=== PATIENT | female | born 1985 | race Caucasian/White ===

== ENCOUNTER 2017-05-23 20:55 | Inpatient (IN) | payer OTHER ==
[~2017-05-23] VITALS: Ht 167.6 cm; Wt 152.0 kg
[2017-05-23 20:57] VITALS: O2SAT 100
[2017-05-23] MEDS ORDERED: ceFAZolin 2 GM PREMIX 50 ML ONE (21:04)
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
[2017-05-23] MEDS ORDERED: IOHEXOL 350 MG/ML 10 ML VIAL (for RAD DIAG) IV ONE (21:21)
[2017-05-23 21:23] LABS: AUTOMATED NEUTROPHIL # 8.9 TH/MM3 (1.8-7.7); BASOPHIL # 0.1 TH/MM3 (0-0.2); BASOPHIL % 0.4 % (0.0-2.0); EOSINOPHIL # 0.1 TH/MM3 (0-0.4); EOSINOPHIL % 0.8 % (0.0-4.0); HEMATOCRIT 39.2 % (35.0-46.0); I-STAT POTASSIUM 3.3 MMOL/L (3.5-4.9); I-STAT SODIUM 140 MMOL/L (138-146); LYMPH % 40.7 % (9.0-44.0); LYMPHOCYTE # 6.7 TH/MM3 (1.0-4.8); MEAN CORPUSCULAR HEMOGLOBIN 30.5 PG (27.0-34.0); MEAN CORPUSCULAR HGB CONC 34.6 % (32.0-36.0); MONO % 3.7 % (0.0-8.0); NEUT % 54.4 % (16.0-70.0); PLATELET COUNT 377 TH/MM3 (150-450); RED BLOOD COUNT 4.45 MIL/MM3 (4.00-5.30); WHITE BLOOD COUNT 16.4 TH/MM3 (4.0-11.0)
[2017-05-23 21:28] LABS: HEMO FLAGS AUTO DIFF
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
[2017-05-23 21:34] LABS: APTT (PATIENT) 23.5 SEC (24.3-30.1); INTERNATIONAL NORMALIZED RATIO 0.9 RATIO; PROTHROMBIN TIME - PATIENT 10.1 SEC (9.8-11.6)
[2017-05-23] MEDS ORDERED: LIDOCAINE HCL 1% PF 30 ML VIAL ONE (21:34)
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
[2017-05-23 21:43] LABS: BETA HCG QUANT LESS THAN 1 MIU/ML (0-5)
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
[2017-05-23 21:59] LABS: BANDS 1 % (0-6); EOSINOPHILS 2 % (0-4); METAMYELOCYTES 1 % (0-1); NEUTROPHIL # MANUAL DIFF 8.7 TH/MM3 (1.8-7.7); POLYS (SEG NEUTROPHILS) 51 % (16-70); WBC DIFF SAMPLE 100
[2017-05-23 22:00] VITALS: BP 113/70; PULSE 94; RESP 18; TEMP 99; O2SAT 98
[2017-05-23 22:01] LABS: PLATELET ESTIMATE SMEAR NORMAL (NORMAL); PLATELET MORPHOLOGY CLUMPED (NORMAL); SCAN/DIFF FINAL DIFF MANUAL
[2017-05-23] MEDS ORDERED: ACETAMINOPHEN 325 MG TAB PO PRN (22:15)
[2017-05-23] MEDS ORDERED: CHLORHEXIDINE GLUCONATE 2 % 1 PACK (2 CLOTHS) TOP PRN (22:15)
[2017-05-23] MEDS ORDERED: IBUPROFEN 800 MG TAB PO SCH (22:15)
[2017-05-23] MEDS ORDERED: ONDANSETRON HCL 4 MG/2 ML VIAL IV PRN (22:15)
[2017-05-23] MEDS ORDERED: MISCELLANEOUS NURSING INFORMATION XX SCH (22:15)
[2017-05-23] MEDS ORDERED: HYDROmorphone HCL PF 1 MG/ML VIAL IVP PRN (22:15)
--- NOTE | 2017-05-23 22:20 | RADRPT ---
EXAM DATE/TIME: 05/23/2017 22:11 [facility] COMPARISON: CHEST SINGLE AP, May 23, 2017, 20:50. INDICATIONS : Evaluate for pneumothorax post chest tube placement MEDICAL HISTORY : None. SURGICAL HISTORY : None. ENCOUNTER: Initial ACUITY: 1 day PAIN SCORE: Non-responsive. LOCATION: chest FINDINGS: A single AP portable semierect view the chest was obtained and demonstrates interval placement of a s mall bore right-sided chest tube projected over the mid lung. No pneumothorax is visualized. There is a small amount of subcutaneous emphysema again noted over the right lateral chest wall. The heart si ze is within normal limits. There is no definite mediastinal shift. There is mild hazy opacity in the right lung compared to the left. Study is Midinspiratory. The bony thorax appears intact. The patien t's head is flexed obscuring portions of the right lung apex. CONCLUSION: 1. Interval placement of small bore right-sided chest tube with no visualized pneumothorax. 2. Hazy opacity in the right lung. Elroy Rosales MD on May 23, 2017 at 22:18 Board Certified Radiologist. This report was verified electronically.
[2017-05-23] MEDS: PANTOPRAZOLE SODIUM 40 MG VIAL IVP SCH (22:51)
[2017-05-23] MEDS: ENOXAPARIN SODIUM 30 MG/0.3 ML SYRINGE SQ SCH (22:51)
[2017-05-23] MEDS: LACTATED RINGER'S 1000 ML INJ 1,000 ML IV SCH (22:51)
[2017-05-23] MEDS: DIAZEPAM 2 MG TAB PO SCH (22:52)
[2017-05-24] VITALS (15 sets, daily range): BP systolic 108–133; BP diastolic 61–77; PULSE 58–95; RESP 20–26; TEMP 97.9–99.1; O2SAT 95–100
[2017-05-24] MEDS: CHLORHEXIDINE GLUCONATE 2 % 1 PACK (2 CLOTHS) TOP SCH (04:00)
[2017-05-24 04:40] LABS: AUTOMATED NEUTROPHIL # 12.4 TH/MM3 (1.8-7.7); BASOPHIL % 0.2 % (0.0-2.0); HEMATOCRIT 35.1 % (35.0-46.0); HEMO FLAGS DIFF FINAL; LYMPH % 5.5 % (9.0-44.0); LYMPHOCYTE # 0.8 TH/MM3 (1.0-4.8); MEAN CELL VOLUME 88.7 FL (80.0-100.0); MEAN CORPUSCULAR HEMOGLOBIN 29.9 PG (27.0-34.0); MEAN CORPUSCULAR HGB CONC 33.7 % (32.0-36.0); MONO % 5.4 % (0.0-8.0); NEUT % 88.9 % (16.0-70.0); PLATELET COUNT 226 TH/MM3 (150-450); RED BLOOD COUNT 3.96 MIL/MM3 (4.00-5.30); RED CELL DISTRIBUTION WIDTH 13.4 % (11.6-17.2); WHITE BLOOD COUNT 13.9 TH/MM3 (4.0-11.0)
[2017-05-24 05:05] LABS: BICARBONATE 24.3 MEQ/L (21.0-32.0); POTASSIUM 4.1 MEQ/L (3.5-5.1)
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
[2017-05-24] MEDS: IBUPROFEN 800 MG TAB PO SCH ×3 (07:28→22:21)
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
[2017-05-24] MEDS: RESP: ALBUTEROL 2.5 MG/IPRATROPIUM 0.5 MG NEB (SCH) NEB ×4 (08:07→20:07)
[2017-05-24] MEDS: LACTATED RINGER'S 1000 ML INJ 1,000 ML IV SCH (08:43)
[2017-05-24] MEDS: DOCUSATE SODIUM 100 MG CAP PO SCH ×2 (08:43→19:54)
[2017-05-24] MEDS: DIAZEPAM 2 MG TAB PO SCH ×3 (08:43→22:21)
[2017-05-24] MEDS: LIDOCAINE HCL 5% PATCH T-DERMAL SCH (08:44)
[2017-05-24] MEDS ORDERED: NALOXONE HCL 0.4 MG/ML AMP IV PRN (11:00)
[2017-05-24] MEDS: ENOXAPARIN SODIUM 30 MG/0.3 ML SYRINGE SQ SCH ×2 (11:00→22:21)
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
[2017-05-24] MEDS ORDERED: MAGNESIUM SULFATE INJ 2 GM in SODIUM CHLORIDE 0.9% INJ 96 ML IV PRN (12:30)
[2017-05-24] MEDS ORDERED: POTASSIUM CHLOR 40 MEQ PREMIX 100 ML IV PRN ×2 (12:30)
[2017-05-24] MEDS ORDERED: MAGNESIUM OXIDE 400 MG TAB PO PRN (12:30)
[2017-05-24] MEDS ORDERED: MAGNESIUM SULFATE INJ 4 GM in SODIUM CHLORIDE 0.9% INJ 92 ML IV PRN (12:30)
[2017-05-24] MEDS ORDERED: POTASSIUM CHLOR 20 MEQ PREMIX 100 ML IV PRN ×2 (12:30)
[2017-05-24] MEDS ORDERED: POTASSIUM CHLORIDE 25 MEQ EFFERVESCENT TAB PO PRN (12:30)
[2017-05-24] MEDS ORDERED: POTASSIUM PHOSPHATE MONOBASIC 500 MG TAB PO/TUBE PRN (12:30)
[2017-05-24] MEDS ORDERED: SODIUM PHOSPHATE INJ 30 MMOL in SODIUM CHLOR 0.9% 250 ML INJ 240 ML IV PRN (12:30)
[2017-05-24] MEDS ORDERED: POTASSIUM PHOSPHATE INJ 30 MMOL in SODIUM CHLOR 0.9% 250 ML INJ 250 ML IV PRN (12:30)
[2017-05-24] MEDS ORDERED: POTASSIUM PHOSPHATE MONOBASIC 500 MG TAB PO PRN (12:30)
[2017-05-24] MEDS: HYDROmorphone HCL PCA 6 MG/30 ML IV SCH (12:37)
[2017-05-24] MEDS: PCA - TOTAL MG DILAUDID DELIVERED PER SHIFT OTHER SCH ×2 (14:00→22:00)
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
[2017-05-24] MEDS: PANTOPRAZOLE SODIUM 40 MG VIAL IVP SCH (22:21)
[2017-05-25] VITALS (13 sets, daily range): BP systolic 103–142; BP diastolic 60–79; PULSE 64–97; RESP 15–26; TEMP 97–98.5; O2SAT 97–100
[2017-05-25] MEDS: HYDROmorphone HCL PCA 6 MG/30 ML IV SCH (01:12)
[2017-05-25] MEDS: CHLORHEXIDINE GLUCONATE 2 % 1 PACK (2 CLOTHS) TOP SCH (04:00)
[2017-05-25] MEDS: LACTATED RINGER'S 1000 ML INJ 1,000 ML IV SCH ×3 (05:00→19:41)
[2017-05-25] MEDS: IBUPROFEN 800 MG TAB PO SCH ×3 (05:10→21:30)
[2017-05-25] MEDS: PCA - TOTAL MG DILAUDID DELIVERED PER SHIFT OTHER SCH ×3 (06:00→22:00)
--- NOTE | 2017-05-25 06:21 | RADRPT ---
EXAM DATE/TIME: 05/25/2017 05:13 [facility] COMPARISON: CHEST SINGLE AP, May 24, 2017, 5:13. INDICATIONS : Short of breath. MEDICAL HISTORY : None. SURGICAL HISTORY : None. ENCOUNTER: Subsequent ACUITY: 2 days PAIN SCORE: Non-responsive. LOCATION: Bilateral chest FINDINGS: Small caliber right chest tube remains in place. No pneumothorax seen. Mild atelectasis seen at both lung bases. No perceptible effusion. Heart size stable, upper limits of normal. CONCLUSION: Decreasing airspace consolidation. Right chest tube remains in place. No perceptible pneumothorax. Darrel Gunn MD on May 25, 2017 at 6:19 Board Certified Radiologist. This report was verified electronically.
[2017-05-25 06:38] LABS: AUTOMATED NEUTROPHIL # 6.9 TH/MM3 (1.8-7.7); BASOPHIL % 0.4 % (0.0-2.0); EOSINOPHIL # 0.2 TH/MM3 (0-0.4); EOSINOPHIL % 1.6 % (0.0-4.0); HEMATOCRIT 37.8 % (35.0-46.0); HEMO FLAGS DIFF FINAL; LYMPH % 19.3 % (9.0-44.0); LYMPHOCYTE # 1.9 TH/MM3 (1.0-4.8); MEAN CORPUSCULAR HEMOGLOBIN 29.2 PG (27.0-34.0); MEAN CORPUSCULAR HGB CONC 32.4 % (32.0-36.0); MONO % 7.7 % (0.0-8.0); PLATELET COUNT 204 TH/MM3 (150-450); RED CELL DISTRIBUTION WIDTH 13.6 % (11.6-17.2); WHITE BLOOD COUNT 9.7 TH/MM3 (4.0-11.0)
[2017-05-25] MEDS: DIAZEPAM 2 MG TAB PO SCH ×3 (07:00→21:31)
[2017-05-25 07:06] LABS: ALKALINE PHOSPHATASE 71 U/L (45-117); TOTAL BILIRUBIN ADULT 0.5 MG/DL (0.2-1.0)
[2017-05-25] MEDS: DOCUSATE SODIUM 100 MG CAP PO SCH ×2 (07:25→19:41)
--- NOTE | 2017-05-25 07:49 | PD.ORT.PN ---
Subjective Subjective Remarks Complains of right shoulder pain and fracture. Chest tube in place due to right side pneumothorax Objective Vitals Vital Signs Date Time Temp Pulse Resp B/P Pulse Ox O2 Delivery O2 Flow Rate FiO2 05/25/17 06:00 76 05/25/17 04:00 71 05/25/17 04:00 97.4 71 16 118/60 97 05/25/17 02:00 74 05/25/17 01:12 15 05/25/17 00:00 70 05/25/17 00:00 97.9 70 15 115/60 98 05/24/17 23:21 15 05/24/17 22:00 79 05/24/17 22:00 15 05/24/17 20:05 95 Nasal Cannula 3.00 05/24/17 20:00 75 05/24/17 20:00 98.4 79 20 119/71 97 05/24/17 19:00 97 Nasal Cannula 3.00 05/24/17 18:00 75 05/24/17 16:00 98.8 90 20 123/73 99 05/24/17 16:00 90 05/24/17 14:00 83 05/24/17 14:00 20 05/24/17 13:07 19 05/24/17 12:37 20 05/24/17 12:00 95 05/24/17 12:00 98.0 95 20 118/67 96 05/24/17 10:00 92 05/24/17 08:10 99 4.00 05/24/17 08:00 58 05/24/17 08:00 97.9 78 20 133/77 100 I/O 05/24/17 05/24/17 05/24/17 05/25/17 05/25/17 05/25/17 07:00 15:00 23:00 07:00 15:00 23:00 Intake Total 622 ml 1496 ml 1287 ml 669 ml Output Total 625 ml 1200 ml 350 ml 300 ml Balance -3 ml 296 ml 937 ml 369 ml Intake Oral 800 ml 400 ml IV Total 622 ml 696 ml 887 ml 669 ml Output Urine Total 625 ml 1200 ml 350 ml 300 ml Chest Tube Drainage Total 0 ml 0 ml # Voids 1 # Bowel Movements 0 0 0 0 Result Diagram: 05/25/17 0605/24/17 0357 Imaging Last 72 hours Impressions Chest X-Ray 05/25/17 0600 Signed Impressions: Service Date/Time: Thursday, May 25, 2017 05:13 - CONCLUSION: Decreasing airspace consolidation. Right chest tube remains in place. No perceptible pneumothorax. Darrel Gunn MD Chest X-Ray 05/24/17 0000 Signed Impressions: Service Date/Time: Wednesday, May 24, 2017 05:13 - CONCLUSION: Persistent infiltrate right lung base. Chest tube overlies the right chest. Small right apical pneumothorax Raul Lemons MD Pelvis X-Ray 05/23/172056 Signed Impressions: Service Date/Time: Tuesday, May 23, 2017 20:50 - CONCLUSION: Negative trauma study. Elroy Rosales MD Head CT 05/23/172056 Signed Impressions: Service Date/Time: Tuesday, May 23, 2017 21:14 - CONCLUSION: 1. The study is degraded by motion and streak artifact. 2. No definite hemorrhage or mass effect identified. Elroy Rosales MD Chest X-Ray 05/23/172056 Signed Impressions: Service Date/Time: Tuesday, May 23, 2017 20:50 - CONCLUSION: 1. Subcutaneous emphysema and apparent right pneumothorax. 2. The heart appears mildly displaced to the left of midline which could indicate tension. Elroy Rosales MD Chest CT 05/23/172056 Signed Impressions: Service Date/Time: Tuesday, May 23, 2017 21:21 - CONCLUSION: 1. Moderate size right pneumothorax with mediastinal shift to the left consistent with tension pneumothorax. 2. Nondisplaced right rib fractures with subcutaneous edema 3. Small right effusion and mild right lung contusion. These findings were called to Dr. Perdomo in the emergency room at 2138 hrs. Elroy Rosales MD Cervical Spine CT 05/23/172056 Signed Impressions: Service Date/Time: Tuesday, May 23, 2017 21:14 - CONCLUSION: Negative trauma CT. Elroy Rosales MD Abdomen/Pelvis CT 05/23/172056 Signed Impressions: Service Date/Time: Tuesday, May 23, 2017 21:21 - CONCLUSION: 1. No definite visceral injury. There is mild motion and streak artifact. 2. Moderate size right basilar and lateral pneumothorax with mild small right effusion. 3. Several right lower lateral rib fractures. Elroy Rosales MD Humerus X-Ray 05/23/17 0000 Signed Impressions: Service Date/Time: Tuesday, May 23, 2017 20:50 - CONCLUSION: Transverse fracture through the midhumerus. Elroy Rosales MD Chest X-Ray 05/23/17 0000 Signed Impressions: Service Date/Time: Tuesday, May 23, 2017 22:11 - CONCLUSION: 1. Interval placement of small bore right-sided chest tube with no visualized pneumothorax. 2. Hazy opacity in the right lung. Elroy Rosales MD Last 72 hours Impressions Chest X-Ray 05/24/17 0000 Signed Impressions: Service Date/Time: Wednesday, May 24, 2017 05:13 - CONCLUSION: Persistent infiltrate right lung base. Chest tube overlies the right chest. Small right apical pneumothorax Raul Lemons MD Pelvis X-Ray 05/23/172056 Signed Impressions: Service Date/Time: Tuesday, May 23, 2017 20:50 - CONCLUSION: Negative trauma study. Elroy Rosales MD Head CT 05/23/172056 Signed Impressions: Service Date/Time: Tuesday, May 23, 2017 21:14 - CONCLUSION: 1. The study is degraded by motion and streak artifact. 2. No definite hemorrhage or mass effect identified. Elroy Rosales MD Chest X-Ray 05/23/172056 Signed Impressions: Service Date/Time: Tuesday, May 23, 2017 20:50 - CONCLUSION: 1. Subcutaneous emphysema and apparent right pneumothorax. 2. The heart appears mildly displaced to the left of midline which could indicate tension. Elroy Rosales MD Chest CT 05/23/172056 Signed Impressions: Service Date/Time: Tuesday, May 23, 2017 21:21 - CONCLUSION: 1. Moderate size right pneumothorax with mediastinal shift to the left consistent with tension pneumothorax. 2. Nondisplaced right rib fractures with subcutaneous edema 3. Small right effusion and mild right lung contusion. These findings were called to Dr. Perdomo in the emergency room at 2138 hrs. Elroy Rosales MD Cervical Spine CT 05/23/172056 Signed Impressions: Service Date/Time: Tuesday, May 23, 2017 21:14 - CONCLUSION: Negative trauma CT. Elroy Rosales MD Abdomen/Pelvis CT 05/23/172056 Signed Impressions: Service Date/Time: Tuesday, May 23, 2017 21:21 - CONCLUSION: 1. No definite visceral injury. There is mild motion and streak artifact. 2. Moderate size right basilar and lateral pneumothorax with mild small right effusion. 3. Several right lower lateral rib fractures. Elroy Rosales MD Humerus X-Ray 05/23/17 0000 Signed Impressions: Service Date/Time: Tuesday, May 23, 2017 20:50 - CONCLUSION: Transverse fracture through the midhumerus. Elroy Rosales MD Chest X-Ray 05/23/17 0000 Signed Impressions: Service Date/Time: Tuesday, May 23, 2017 22:11 - CONCLUSION: 1. Interval placement of small bore right-sided chest tube with no visualized pneumothorax. 2. Hazy opacity in the right lung. Elroy Rosales MD Last 24 hours Impressions Chest X-Ray 05/24/17 Signed Impressions: Service Date/Time: Wednesday, May 24, 2017 05:13 - CONCLUSION: Persistent infiltrate right lung base. Chest tube overlies the right chest. Small right apical pneumothorax Raul Lemons MD Pelvis X-Ray 05/23/172056 Signed Impressions: Service Date/Time: Tuesday, May 23, 2017 20:50 - CONCLUSION: Negative trauma study. Elroy Rosales MD Head CT 05/23/172056 Signed Impressions: Service Date/Time: Tuesday, May 23, 2017 21:14 - CONCLUSION: 1. The study is degraded by motion and streak artifact. 2. No definite hemorrhage or mass effect identified. Elroy Rosales MD Chest X-Ray 05/23/172056 Signed Impressions: Service Date/Time: Tuesday, May 23, 2017 20:50 - CONCLUSION: 1. Subcutaneous emphysema and apparent right pneumothorax. 2. The heart appears mildly displaced to the left of midline which could indicate tension. Elroy Rosales MD Chest CT 05/23/172056 Signed Impressions: Service Date/Time: Tuesday, May 23, 2017 21:21 - CONCLUSION: 1. Moderate size right pneumothorax with mediastinal shift to the left consistent with tension pneumothorax. 2. Nondisplaced right rib fractures with subcutaneous edema 3. Small right effusion and mild right lung contusion. These findings were called to Dr. Perdomo in the emergency room at 2138 hrs. Elroy Rosales MD Cervical Spine CT 05/23/172056 Signed Impressions: Service Date/Time: Tuesday, May 23, 2017 21:14 - CONCLUSION: Negative trauma CT. Elroy Rosales MD Abdomen/Pelvis CT 05/23/172056 Signed Impressions: Service Date/Time: Tuesday, May 23, 2017 21:21 - CONCLUSION: 1. No definite visceral injury. There is mild motion and streak artifact. 2. Moderate size right basilar and lateral pneumothorax with mild small right effusion. 3. Several right lower lateral rib fractures. Elroy Rosales MD Objective Remarks Right upper extremity: Full range of motion and neurovascularly intact Bilateral lower extremities: No pain with range of motion of hip knee or ankle. Distally intact sensation with good capillary refills strong dorsiflexion and plantar flexion of bilateral feet Left upper extremity: Coaptation splint in place. No pain at wrist or fingers. Intact sensation distally over the radial ulnar and median nerve distributions with good capillary refills. Assessment & Plan Assessment and Plan Left humeral shaft fracture Maintain splint Nonweightbearing left upper extremity nothing by mouth Plan for surgery today morning with Dr. Lugo for open reduction internal fixation of left humerus Sign consents Elroy Walker Jr. May 25, 2017 07:49
[2017-05-25 07:57] LABS: ALT (GPT) 269 U/L (10-53); ANION GAP 6 MEQ/L (5-15); AST (GOT) 150 U/L (15-37); BICARBONATE 24.7 MEQ/L (21.0-32.0); BLOOD UREA NITROGEN 8 MG/DL (7-18); CHLORIDE 106 MEQ/L (98-107); GLOMERULAR FILTRATION RATE 121 ML/MIN (>89); POTASSIUM 4.6 MEQ/L (3.5-5.1); SODIUM (NA) 137 MEQ/L (136-145)
[2017-05-25] MEDS: RESP: ALBUTEROL 2.5 MG/IPRATROPIUM 0.5 MG NEB (SCH) NEB ×4 (08:23→20:16)
[2017-05-25] MEDS: LIDOCAINE HCL 5% PATCH T-DERMAL SCH (09:00)
[2017-05-25] MEDS ORDERED: ACETAMINOPHEN 1000 MG/100 ML VIAL IV ONE (09:49)
[2017-05-25] MEDS ORDERED: DEXAMETHASONE SOD PHOS 4 MG/ML VIAL ONE (09:49)
[2017-05-25] MEDS ORDERED: FAMOTIDINE 20 MG/2 ML VIAL ONE (09:49)
[2017-05-25] MEDS ORDERED: ceFAZolin INJ 1,000 MG VIAL IV ONE (10:49)
[2017-05-25] MEDS ORDERED: VANCOMYCIN HCL 1000 MG VIAL OTHER ONE (10:51)
[2017-05-25] MEDS ORDERED: GENTAMICIN SULFATE 80 MG/2 ML VIAL IRRIGATION ONE (10:57)
[2017-05-25] MEDS: ENOXAPARIN SODIUM 30 MG/0.3 ML SYRINGE SQ SCH ×2 (11:00→21:30)
--- NOTE | 2017-05-25 11:54 | PD.OP ---
cc: Lazaro Chase MD Operative Report Date of Surgery: May 25, 2017 Preoperative Diagnosis: Displaced left humerus shaft fracture Postoperative Diagnosis: Procedure: Open reduction and fixation left humerus shaft fracture Surgeon: Lazaro Chase Bank Accountant(s): SELVIN Valle PA-C The surgical procedure was assisted by my physician assistant dean of students. My P.A. presence was necessary throughout this case for the manipulation and positioning of the surgical extremity. My P.A. was assisting me throughout the duration of this procedure. The skill set of a physician assistant dean of students was medically necessary to complete this procedure. During the surgical case the surgical services tech was working at the back table and the physician assistant dean of students was directly assisting me. Operation and Findings: Patient was seen and evaluated preoperatively. She was found to have a displaced left humerus shaft fracture. Treatment options were discussed regarding humerus fracture including surgical and nonsurgical treatments. After detailed discussion of risk and benefits of procedure patient wishes to proceed with surgery. Risks of surgery include bleeding, infection, nonunion, malunion, painful hardware, loss of motion of shoulder and elbow, weakness and numbness of arm, as well as medical competitions including blood clots stroke and . Patient was brought to operating room and placed on the OR table. GETA was administered by anesthesiologist. Operative arm and shoulder were prepped with alcohol followed by Hibiclens and draped usual sterile fashion. Timeout procedure was performed. IV antibiotics were given prior to incision. A standard anterior approach was utilized. Subcutaneous tissues was dissected with Bovie. Cephalic vein was identified and protected. Proximally the deltopectoral interval was opened. Distally the brachialis was split. The fracture was identified. There was an area of comminution. Soft tissue was removed from the fracture site. Fracture site was cleaned with curettes. At this point the fracture was reduced using fracture tenaculums. Multiplanar fluoroscopy confirmed excellent of fracture. A ITS 3.5 compression plate was contoured to fit the humerus. Plate was provisionally held the bone with K wires. 3.5 cortical screws were placed on each side of the fracture. The screws were placed to add compression to fracture. Multiple screws were placed in each side of the fracture. All screws were predrilled and premeasured for appropriate length. Final fluoroscopy revealed excellent alignment of fracture with well-placed hardware. Incision was thoroughly irrigated. Fascia was closed with #1 Vicryl, subcutaneous tissues closed with 3-0 Vicryl, and skin was closed with cristhian. Sterile dressings were applied. Needle and sponge counts were correct. Patient was placed into a sling, and then transferred to recovery room in stable condition Lazaro Chase MD May 25, 2017 11:54
[2017-05-25] MEDS ORDERED: NEOSTIGMINE 3 MG/3 ML SYR IV ONE (12:00)
[2017-05-25] MEDS ORDERED: MORPHINE SULFATE 4 MG/ML INJ IV PUSH PRN (12:00)
[2017-05-25] MEDS ORDERED: ONDANSETRON HCL 4 MG/2 ML VIAL IV PUSH ONE (12:00)
[2017-05-25] MEDS ORDERED: SODIUM CHLORIDE 0.9% FLUSH 5 ML FLUSH IVF PRN (12:00)
[2017-05-25] MEDS ORDERED: PROPOFOL 200 MG/20 ML AMP IV ONE (12:00)
[2017-05-25] MEDS ORDERED: fentaNYL CITRATE 250 MCG/5 ML AMP ONE (12:27)
[2017-05-25] MEDS ORDERED: CALCTAB19 PO (12:35)
[2017-05-25] MEDS ORDERED: ERGO1CAP30 PO (12:35)
[2017-05-25] MEDS ORDERED: HYDR-3583 PO (12:35)
[2017-05-25] MEDS ORDERED: *morphine SULFATE 8 MG/ML PERIprocedure ONLY ONE (12:36)
[2017-05-25] MEDS ORDERED: DO NOT ADM ANY ANTICOAGULANT DRUGS PRN (12:45)
[2017-05-25] MEDS: METHOCARBAMOL 500 MG TAB PO SCH ×2 (15:28→21:30)
--- NOTE | 2017-05-25 15:33 | RADRPT ---
EXAM DATE/TIME: 05/25/2017 11:37 [facility] COMPARISON: HUMERUS LEFT (1 VW), May 23, 2017, 20:50. INDICATIONS : ORIF left humerus. MEDICAL HISTORY : None. SURGICAL HISTORY : None. ENCOUNTER: Subsequent ACUITY: 3 days PAIN SCORE: Non-responsive. LOCATION: Left humerus. FINDINGS: Side plate and multiple screws traverse the humerus with excellent anatomical alignment of the fractu re fragments. CONCLUSION: Intact postsurgical changes for technique. Brittany Camejo MD on May 25, 2017 at 15:32 Board Certified Radiologist. This report was verified electronically.
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
[2017-05-25] MEDS: ceFAZolin 2 GM PREMIX 50 ML IV SCH (19:41)
[2017-05-25] MEDS: SODIUM CHLORIDE 0.9% FLUSH 5 ML FLUSH IVF SCH (21:00)
[2017-05-25] MEDS: PANTOPRAZOLE SODIUM 40 MG VIAL IVP SCH (21:30)
[2017-05-26] VITALS (7 sets, daily range): BP systolic 99–113; BP diastolic 55–63; PULSE 75–97; RESP 19–21; TEMP 96.4–97.1; O2SAT 96–100
[2017-05-26] MEDS: CHLORHEXIDINE GLUCONATE 2 % 1 PACK (2 CLOTHS) TOP SCH (00:13)
[2017-05-26] MEDS: MAGNESIUM HYDROXIDE SUSP 30 ML CUP PO PRN ×2 (00:32→13:55)
[2017-05-26] MEDS: ceFAZolin 2 GM PREMIX 50 ML IV SCH ×2 (03:42→13:44)
[2017-05-26] MEDS: HYDROmorphone HCL PCA 6 MG/30 ML IV SCH (04:14)
[2017-05-26] MEDS: PCA - TOTAL MG DILAUDID DELIVERED PER SHIFT OTHER SCH (06:00)
[2017-05-26] MEDS: IBUPROFEN 800 MG TAB PO SCH ×3 (06:04→22:06)
[2017-05-26] MEDS: METHOCARBAMOL 500 MG TAB PO SCH ×3 (06:04→22:07)
--- NOTE | 2017-05-26 06:49 | RADRPT ---
EXAM DATE/TIME: 05/26/2017 06:30 [facility] COMPARISON: CHEST SINGLE AP, May 25, 2017, 5:13. INDICATIONS : Right side pneumothorax follow-up. MEDICAL HISTORY : Pneumothorax. SURGICAL HISTORY : Left humerus repair. ENCOUNTER: Subsequent ACUITY: 3 days PAIN SCORE: 4/10 LOCATION: Bilateral chest FINDINGS: Right chest tube remains in place, loop projecting over the lateral right mid lung. A small apical pn eumothorax is present. There is mild atelectasis of both bases. No effusion seen. No left pneumothorax. Heart size stable, upper limits of normal. CONCLUSION: 1. Right chest tube unchanged. Very small apical pneumothorax. 2. Mild bibasilar atelectasis Darrel Gunn MD on May 26, 2017 at 6:46 Board Certified Radiologist. This report was verified electronically.
[2017-05-26] MEDS: DIAZEPAM 2 MG TAB PO SCH (08:24)
[2017-05-26 08:43] LABS: AUTOMATED NEUTROPHIL # 8.9 TH/MM3 (1.8-7.7); BASOPHIL % 0.2 % (0.0-2.0); EOSINOPHIL % 0.3 % (0.0-4.0); HEMO FLAGS DIFF FINAL; LYMPH % 11.7 % (9.0-44.0); LYMPHOCYTE # 1.3 TH/MM3 (1.0-4.8); MEAN CELL VOLUME 91.8 FL (80.0-100.0); MEAN CORPUSCULAR HEMOGLOBIN 31.4 PG (27.0-34.0); MEAN CORPUSCULAR HGB CONC 34.2 % (32.0-36.0); MONO % 8.1 % (0.0-8.0); NEUT % 79.7 % (16.0-70.0); PLATELET COUNT 204 TH/MM3 (150-450); RED BLOOD COUNT 3.38 MIL/MM3 (4.00-5.30); RED CELL DISTRIBUTION WIDTH 13.7 % (11.6-17.2); WHITE BLOOD COUNT 11.2 TH/MM3 (4.0-11.0)
[2017-05-26 08:55] LABS: ANION GAP 7 MEQ/L (5-15); AST (GOT) 87 U/L (15-37); BICARBONATE 26.6 MEQ/L (21.0-32.0); BLOOD UREA NITROGEN 8 MG/DL (7-18); CHLORIDE 103 MEQ/L (98-107); GLOMERULAR FILTRATION RATE 141 ML/MIN (>89); POTASSIUM 4.4 MEQ/L (3.5-5.1); SODIUM (NA) 137 MEQ/L (136-145)
[2017-05-26] MEDS: RESP: ALBUTEROL 2.5 MG/IPRATROPIUM 0.5 MG NEB (SCH) NEB ×2 (08:58→11:24)
[2017-05-26 08:59] LABS: ALKALINE PHOSPHATASE 65 U/L (45-117); ALT (GPT) 161 U/L (10-53); TOTAL BILIRUBIN ADULT 0.4 MG/DL (0.2-1.0)
--- NOTE | 2017-05-26 10:12 | PD.ORT.PN ---
Subjective Subjective Remarks Pain controlled. Chest tube in place due to right side pneumothorax Objective Vitals Vital Signs Date Time Temp Pulse Resp B/P Pulse Ox O2 Delivery O2 Flow Rate FiO2 05/26/17 09:01 99 Nasal Cannula 2.00 05/26/17 07:38 96.4 75 19 113/63 99 05/26/17 07:26 18 05/26/17 06:00 18 05/26/17 04:44 18 05/26/17 04:14 18 05/26/17 04:00 96.7 97 21 113/60 96 05/26/17 02:00 Nasal Cannula 3.00 05/25/17 23:10 97.0 72 19 103/61 100 05/25/17 22:00 15 05/25/17 22:00 78 05/25/17 20:19 99 Nasal Cannula 3.00 05/25/17 20:00 98.4 64 17 142/79 98 05/25/17 20:00 64 05/25/17 19:00 99 Nasal Cannula 3.00 05/25/17 18:00 80 05/25/17 16:00 98.5 97 26 112/66 99 05/25/17 16:00 93 05/25/17 14:00 85 05/25/17 12:45 89 12 141/76 96 Nasal Cannula 4 05/25/17 12:30 96 12 168/82 96 Nasal Cannula 4 05/25/17 12:22 99.6 101 23 161/84 94 Simple Mask 8 I/O 05/25/17 05/25/17 05/25/17 05/26/17 05/26/17 05/26/17 07:00 15:00 23:00 07:00 15:00 23:00 Intake Total 669 ml 1700 ml 1136 ml 938 ml Output Total 300 ml 750 ml 550 ml 0 ml Balance 369 ml 950 ml 586 ml 938 ml Intake Oral 400 ml 500 ml IV Total 669 ml 600 ml 736 ml 438 ml Other 1100 ml Output Urine Total 300 ml 600 ml 550 ml Chest Tube Drainage Total 0 ml 0 ml 0 ml Estimated Blood Loss 150 ml # Voids 1 4 # Bowel Movements 0 0 0 Result Diagram: 05/26/1746 05/26/17745 Imaging Last 72 hours Impressions Chest X-Ray 05/25/17 06 Signed Impressions: Service Date/Time: Thursday, May 25, 2017 05:13 - CONCLUSION: Decreasing airspace consolidation. Right chest tube remains in place. No perceptible pneumothorax. Darrel Gunn MD Chest X-Ray 05/24/17 0000 Signed Impressions: Service Date/Time: Wednesday, May 24, 2017 05:13 - CONCLUSION: Persistent infiltrate right lung base. Chest tube overlies the right chest. Small right apical pneumothorax Raul Lemons MD Pelvis X-Ray 05/23/172056 Signed Impressions: Service Date/Time: Tuesday, May 23, 2017 20:50 - CONCLUSION: Negative trauma study. Elroy Rosales MD Head CT 05/23/172056 Signed Impressions: Service Date/Time: Tuesday, May 23, 2017 21:14 - CONCLUSION: 1. The study is degraded by motion and streak artifact. 2. No definite hemorrhage or mass effect identified. Elroy Rosales MD Chest X-Ray 05/23/172056 Signed Impressions: Service Date/Time: Tuesday, May 23, 2017 20:50 - CONCLUSION: 1. Subcutaneous emphysema and apparent right pneumothorax. 2. The heart appears mildly displaced to the left of midline which could indicate tension. Elroy Rosales MD Chest CT 05/23/172056 Signed Impressions: Service Date/Time: Tuesday, May 23, 2017 21:21 - CONCLUSION: 1. Moderate size right pneumothorax with mediastinal shift to the left consistent with tension pneumothorax. 2. Nondisplaced right rib fractures with subcutaneous edema 3. Small right effusion and mild right lung contusion. These findings were called to Dr. Perdomo in the emergency room at 2138 hrs. Elroy Rosales MD Cervical Spine CT 05/23/172056 Signed Impressions: Service Date/Time: Tuesday, May 23, 2017 21:14 - CONCLUSION: Negative trauma CT. Elroy Rosales MD Abdomen/Pelvis CT 05/23/172056 Signed Impressions: Service Date/Time: Tuesday, May 23, 2017 21:21 - CONCLUSION: 1. No definite visceral injury. There is mild motion and streak artifact. 2. Moderate size right basilar and lateral pneumothorax with mild small right effusion. 3. Several right lower lateral rib fractures. Elroy Rosales MD Humerus X-Ray 7/9/17 0000 Signed Impressions: Service Date/Time: Tuesday, May 23, 2017 20:50 - CONCLUSION: Transverse fracture through the midhumerus. Elroy Rosales MD Chest X-Ray 05/23/17 0000 Signed Impressions: Service Date/Time: Tuesday, May 23, 2017 22:11 - CONCLUSION: 1. Interval placement of small bore right-sided chest tube with no visualized pneumothorax. 2. Hazy opacity in the right lung. Elroy Rosaels MD Last 72 hours Impressions Chest X-Ray 05/24/17 Signed Impressions: Service Date/Time: Wednesday, May 24, 2017 05:13 - CONCLUSION: Persistent infiltrate right lung base. Chest tube overlies the right chest. Small right apical pneumothorax Raul Lemons MD Pelvis X-Ray 05/23/172056 Signed Impressions: Service Date/Time: Tuesday, May 23, 2017 20:50 - CONCLUSION: Negative trauma study. Elroy Rosales MD Head CT 05/23/172056 Signed Impressions: Service Date/Time: Tuesday, May 23, 2017 21:14 - CONCLUSION: 1. The study is degraded by motion and streak artifact. 2. No definite hemorrhage or mass effect identified. Elroy Rosales MD Chest X-Ray 05/23/172056 Signed Impressions: Service Date/Time: Tuesday, May 23, 2017 20:50 - CONCLUSION: 1. Subcutaneous emphysema and apparent right pneumothorax. 2. The heart appears mildly displaced to the left of midline which could indicate tension. Elroy Rosales MD Chest CT 05/23/172056 Signed Impressions: Service Date/Time: Tuesday, May 23, 2017 21:21 - CONCLUSION: 1. Moderate size right pneumothorax with mediastinal shift to the left consistent with tension pneumothorax. 2. Nondisplaced right rib fractures with subcutaneous edema 3. Small right effusion and mild right lung contusion. These findings were called to Dr. Perdomo in the emergency room at 2138 hrs. Elroy Rosales MD Cervical Spine CT 05/23/172056 Signed Impressions: Service Date/Time: Tuesday, May 23, 2017 21:14 - CONCLUSION: Negative trauma CT. Elroy Rosales MD Abdomen/Pelvis CT 05/23/172056 Signed Impressions: Service Date/Time: Tuesday, May 23, 2017 21:21 - CONCLUSION: 1. No definite visceral injury. There is mild motion and streak artifact. 2. Moderate size right basilar and lateral pneumothorax with mild small right effusion. 3. Several right lower lateral rib fractures. Elroy Rosales MD Humerus X-Ray 05/23/17 0000 Signed Impressions: Service Date/Time: Tuesday, May 23, 2017 20:50 - CONCLUSION: Transverse fracture through the midhumerus. Elroy Rosales MD Chest X-Ray 05/23/17 Signed Impressions: Service Date/Time: Tuesday, May 23, 2017 22:11 - CONCLUSION: 1. Interval placement of small bore right-sided chest tube with no visualized pneumothorax. 2. Hazy opacity in the right lung. Elroy Rosales MD Last 24 hours Impressions Chest X-Ray 05/24/17 Signed Impressions: Service Date/Time: Wednesday, May 24, 2017 05:13 - CONCLUSION: Persistent infiltrate right lung base. Chest tube overlies the right chest. Small right apical pneumothorax Raul Lemons MD Pelvis X-Ray 05/23/172056 Signed Impressions: Service Date/Time: Tuesday, May 23, 2017 20:50 - CONCLUSION: Negative trauma study. Elroy Rosales MD Head CT 05/23/172056 Signed Impressions: Service Date/Time: Tuesday, May 23, 2017 21:14 - CONCLUSION: 1. The study is degraded by motion and streak artifact. 2. No definite hemorrhage or mass effect identified. Elroy Rosales MD Chest X-Ray 05/23/172056 Signed Impressions: Service Date/Time: Tuesday, May 23, 2017 20:50 - CONCLUSION: 1. Subcutaneous emphysema and apparent right pneumothorax. 2. The heart appears mildly displaced to the left of midline which could indicate tension. Elroy Rosales MD Chest CT 05/23/172056 Signed Impressions: Service Date/Time: Tuesday, May 23, 2017 21:21 - CONCLUSION: 1. Moderate size right pneumothorax with mediastinal shift to the left consistent with tension pneumothorax. 2. Nondisplaced right rib fractures with subcutaneous edema 3. Small right effusion and mild right lung contusion. These findings were called to Dr. Perdomo in the emergency room at 2138 hrs. Elroy Rosales MD Cervical Spine CT 05/23/172056 Signed Impressions: Service Date/Time: Tuesday, May 23, 2017 21:14 - CONCLUSION: Negative trauma CT. Elroy Rosales MD Abdomen/Pelvis CT 05/23/172056 Signed Impressions: Service Date/Time: Tuesday, May 23, 2017 21:21 - CONCLUSION: 1. No definite visceral injury. There is mild motion and streak artifact. 2. Moderate size right basilar and lateral pneumothorax with mild small right effusion. 3. Several right lower lateral rib fractures. Elroy Rosales MD Objective Remarks Right upper extremity: Full range of motion and neurovascularly intact Bilateral lower extremities: No pain with range of motion of hip knee or ankle. Distally intact sensation with good capillary refills strong dorsiflexion and plantar flexion of bilateral feet Left upper extremity: Clean dry dressings intact. Intact sensation distally with full extension and flexion of all fingers. Good capillary refills Assessment & Plan Assessment and Plan Left humeral shaft fracture ORIF POD 1 Nonweightbearing left upper extremity PT for passive and active assist range of motion of shoulder and elbow. Active range of motion of fingers Daily dressing changes beginning POD 2 Discharge planning Follow-up with Dr. Chase or [place] in 2 weeks Elroy Walker Jr. May 26, 2017 10:11
[2017-05-26] MEDS: LACTULOSE SYRUP 20 GM/30 ML CUP PO SCH (10:13)
[2017-05-26] MEDS: DOCUSATE SODIUM 100 MG CAP PO SCH ×2 (10:13→19:47)
[2017-05-26] MEDS: SODIUM CHLORIDE 0.9% FLUSH 10 ML FLUSH IV FLUSH PRN (10:13)
[2017-05-26] MEDS: LIDOCAINE HCL 5% PATCH T-DERMAL SCH (10:16)
[2017-05-26] MEDS: SODIUM CHLORIDE 0.9% FLUSH 5 ML FLUSH IVF SCH ×2 (10:16→19:47)
[2017-05-26] MEDS: ENOXAPARIN SODIUM 30 MG/0.3 ML SYRINGE SQ SCH ×2 (10:17→22:07)
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
[2017-05-26] MEDS: ACETAMINOPHEN/HYDROcodone 325 MG/10 MG TAB PO PRN ×3 (13:55→22:11)
[2017-05-26] MEDS: FAMOTIDINE 20 MG TAB PO SCH (19:47)
[2017-05-27] VITALS (7 sets, daily range): BP systolic 88–126; BP diastolic 50–65; PULSE 68–89; RESP 17–19; TEMP 95.8–96.4; O2SAT 97–100
[2017-05-27] MEDS: METHOCARBAMOL 500 MG TAB PO SCH (05:37)
[2017-05-27] MEDS: ACETAMINOPHEN/HYDROcodone 325 MG/10 MG TAB PO PRN ×4 (05:38→17:32)
[2017-05-27] MEDS: IBUPROFEN 800 MG TAB PO SCH ×3 (05:38→22:30)
--- NOTE | 2017-05-27 06:37 | HHI.FF ---
Face to Face Verification Diagnosis: (1) Closed left humeral fracture Nursing Dressing Changes: Daily dressing change, Xeroform, Coverderm/Primapore I have seen patient Camille Turcios on 05/27/17. My clinical findings support the need for the requested home health care services because: Ltd mobility - disease progression I certify that my clinical findings support that this patient is homebound because: Post-op weakness Grzegorz Sena May 27, 2017 06:37
--- NOTE | 2017-05-27 06:39 | PD.ORT.PN ---
Subjective Subjective Remarks POD 2 s/p ORIF left humeral shaft doing well. pain controlled. no complaints. Objective Vitals Vital Signs Date Time Temp Pulse Resp B/P Pulse Ox O2 Delivery O2 Flow Rate FiO2 05/27/17 00:00 96.0 73 18 107/57 98 05/26/17 22:22 Nasal Cannula 3.00 05/26/17 20:37 98 Nasal Cannula 2.00 05/26/17 20:00 96.8 75 19 103/59 100 05/26/17 15:38 97.1 76 19 99/55 99 05/26/17 12:00 96.6 96 19 105/58 100 05/26/17 10:16 Nasal Cannula 2.00 100 05/26/17 09:01 99 Nasal Cannula 2.00 05/26/17 07:38 96.4 75 19 113/63 99 05/26/17 07:26 18 I/O 05/26/17 05/26/17 05/26/17 05/27/17 05/27/17 05/27/17 07:00 15:00 23:00 07:00 15:00 23:00 Intake Total 938 ml 874 ml 780 ml Output Total 0 ml 0 ml 0 ml 0 ml Balance 938 ml 874 ml 780 ml 0 ml Intake Oral 500 ml 500 ml 780 ml IV Total 438 ml 374 ml Chest Tube Drainage Total 0 ml 0 ml 0 ml 0 ml # Voids 4 10 1 # Bowel Movements 0 0 0 Result Diagram: 05/26/17 0746 05/26/17 0746 Imaging Last 72 hours Impressions Chest X-Ray 05/25/17 0600 Signed Impressions: Service Date/Time: Thursday, May 25, 2017 05:13 - CONCLUSION: Decreasing airspace consolidation. Right chest tube remains in place. No perceptible pneumothorax. Darrel Gunn MD Chest X-Ray 05/24/17 0000 Signed Impressions: Service Date/Time: Wednesday, May 24, 2017 05:13 - CONCLUSION: Persistent infiltrate right lung base. Chest tube overlies the right chest. Small right apical pneumothorax Raul Lemons MD Pelvis X-Ray 05/23/172056 Signed Impressions: Service Date/Time: Tuesday, May 23, 2017 20:50 - CONCLUSION: Negative trauma study. Elroy Rosales MD Head CT 05/23/172056 Signed Impressions: Service Date/Time: Tuesday, May 23, 2017 21:14 - CONCLUSION: 1. The study is degraded by motion and streak artifact. 2. No definite hemorrhage or mass effect identified. Elroy Rosales MD Chest X-Ray 05/23/172056 Signed Impressions: Service Date/Time: Tuesday, May 23, 2017 20:50 - CONCLUSION: 1. Subcutaneous emphysema and apparent right pneumothorax. 2. The heart appears mildly displaced to the left of midline which could indicate tension. Elroy Rosales MD Chest CT 05/23/172056 Signed Impressions: Service Date/Time: Tuesday, May 23, 2017 21:21 - CONCLUSION: 1. Moderate size right pneumothorax with mediastinal shift to the left consistent with tension pneumothorax. 2. Nondisplaced right rib fractures with subcutaneous edema 3. Small right effusion and mild right lung contusion. These findings were called to Dr. Perdomo in the emergency room at 2138 hrs. Elroy Rosales MD Cervical Spine CT 05/23/172056 Signed Impressions: Service Date/Time: Tuesday, May 23, 2017 21:14 - CONCLUSION: Negative trauma CT. Elroy Rosales MD Abdomen/Pelvis CT 05/23/172056 Signed Impressions: Service Date/Time: Tuesday, May 23, 2017 21:21 - CONCLUSION: 1. No definite visceral injury. There is mild motion and streak artifact. 2. Moderate size right basilar and lateral pneumothorax with mild small right effusion. 3. Several right lower lateral rib fractures. Elroy Rosales MD Humerus X-Ray 05/23/17 0000 Signed Impressions: Service Date/Time: Tuesday, May 23, 2017 20:50 - CONCLUSION: Transverse fracture through the midhumerus. Elroy Rosales MD Chest X-Ray 05/23/17 0000 Signed Impressions: Service Date/Time: Tuesday, May 23, 2017 22:11 - CONCLUSION: 1. Interval placement of small bore right-sided chest tube with no visualized pneumothorax. 2. Hazy opacity in the right lung. Elroy Rosales MD Last 72 hours Impressions Chest X-Ray 05/24/17 0000 Signed Impressions: Service Date/Time: Wednesday, May 24, 2017 05:13 - CONCLUSION: Persistent infiltrate right lung base. Chest tube overlies the right chest. Small right apical pneumothorax Raul Lemons MD Pelvis X-Ray 05/23/172056 Signed Impressions: Service Date/Time: Tuesday, May 23, 2017 20:50 - CONCLUSION: Negative trauma study. Elroy Rosales MD Head CT 05/23/172056 Signed Impressions: Service Date/Time: Tuesday, May 23, 2017 21:14 - CONCLUSION: 1. The study is degraded by motion and streak artifact. 2. No definite hemorrhage or mass effect identified. Elroy Rosales MD Chest X-Ray 05/23/172056 Signed Impressions: Service Date/Time: Tuesday, May 23, 2017 20:50 - CONCLUSION: 1. Subcutaneous emphysema and apparent right pneumothorax. 2. The heart appears mildly displaced to the left of midline which could indicate tension. Elroy Rosales MD Chest CT 05/23/172056 Signed Impressions: Service Date/Time: Tuesday, May 23, 2017 21:21 - CONCLUSION: 1. Moderate size right pneumothorax with mediastinal shift to the left consistent with tension pneumothorax. 2. Nondisplaced right rib fractures with subcutaneous edema 3. Small right effusion and mild right lung contusion. These findings were called to Dr. Perdomo in the emergency room at 2138 hrs. Elroy Rosales MD Cervical Spine CT 05/23/172056 Signed Impressions: Service Date/Time: Tuesday, May 23, 2017 21:14 - CONCLUSION: Negative trauma CT. Elroy Rosales MD Abdomen/Pelvis CT 05/23/172056 Signed Impressions: Service Date/Time: Tuesday, May 23, 2017 21:21 - CONCLUSION: 1. No definite visceral injury. There is mild motion and streak artifact. 2. Moderate size right basilar and lateral pneumothorax with mild small right effusion. 3. Several right lower lateral rib fractures. Elroy Rosales MD Humerus X-Ray 05/23/17 0000 Signed Impressions: Service Date/Time: Tuesday, May 23, 2017 20:50 - CONCLUSION: Transverse fracture through the midhumerus. Elroy Rosales MD Chest X-Ray 05/23/17 0000 Signed Impressions: Service Date/Time: Tuesday, May 23, 2017 22:11 - CONCLUSION: 1. Interval placement of small bore right-sided chest tube with no visualized pneumothorax. 2. Hazy opacity in the right lung. Elroy Rosales MD Last 24 hours Impressions Chest X-Ray 05/24/17 0000 Signed Impressions: Service Date/Time: Wednesday, May 24, 2017 05:13 - CONCLUSION: Persistent infiltrate right lung base. Chest tube overlies the right chest. Small right apical pneumothorax Raul Lemons MD Pelvis X-Ray 05/23/172056 Signed Impressions: Service Date/Time: Tuesday, May 23, 2017 20:50 - CONCLUSION: Negative trauma study. Elroy Rosales MD Head CT 05/23/172056 Signed Impressions: Service Date/Time: Tuesday, May 23, 2017 21:14 - CONCLUSION: 1. The study is degraded by motion and streak artifact. 2. No definite hemorrhage or mass effect identified. Elroy Rosales MD Chest X-Ray 05/23/172056 Signed Impressions: Service Date/Time: Tuesday, May 23, 2017 20:50 - CONCLUSION: 1. Subcutaneous emphysema and apparent right pneumothorax. 2. The heart appears mildly displaced to the left of midline which could indicate tension. Elroy Rosales MD Chest CT 05/23/172056 Signed Impressions: Service Date/Time: Tuesday, May 23, 2017 21:21 - CONCLUSION: 1. Moderate size right pneumothorax with mediastinal shift to the left consistent with tension pneumothorax. 2. Nondisplaced right rib fractures with subcutaneous edema 3. Small right effusion and mild right lung contusion. These findings were called to Dr. Perdomo in the emergency room at 2138 hrs. Elroy Rosales MD Cervical Spine CT 05/23/172056 Signed Impressions: Service Date/Time: Tuesday, May 23, 2017 21:14 - CONCLUSION: Negative trauma CT. Elroy Rosales MD Abdomen/Pelvis CT 05/23/172056 Signed Impressions: Service Date/Time: Tuesday, May 23, 2017 21:21 - CONCLUSION: 1. No definite visceral injury. There is mild motion and streak artifact. 2. Moderate size right basilar and lateral pneumothorax with mild small right effusion. 3. Several right lower lateral rib fractures. Elroy Rosales MD Objective Remarks LUE: dressing clean and dry. intact. +sling. Full median/ulnar nerve sensation and good radial nerve function Assessment & Plan Assessment and Plan 1) Left humeral shaft fracture ORIF POD 2 Nonweightbearing left upper extremity PT for passive and active assist range of motion of shoulder and elbow. Active range of motion of fingers Daily dressing changes beginning POD 2 Discharge planning for home with [facility] Ortho cleared for discharge Follow-up with Dr. Chase or [place] in 2 weeks Grzegorz Sena May 27, 2017 06:39
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
[2017-05-27] MEDS: LIDOCAINE HCL 5% PATCH T-DERMAL SCH (07:54)
[2017-05-27] MEDS: LACTULOSE SYRUP 20 GM/30 ML CUP PO SCH (07:55)
[2017-05-27] MEDS: SODIUM CHLORIDE 0.9% FLUSH 5 ML FLUSH IVF SCH ×2 (07:55→21:00)
[2017-05-27] MEDS: DOCUSATE SODIUM 100 MG CAP PO SCH ×2 (07:55→21:00)
[2017-05-27] MEDS: RESP: ALBUTEROL 2.5 MG/IPRATROPIUM 0.5 MG NEB (SCH) NEB ×4 (08:20→19:04)
[2017-05-27] MEDS: ENOXAPARIN SODIUM 30 MG/0.3 ML SYRINGE SQ SCH ×2 (10:32→22:31)
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
[2017-05-27] MEDS ORDERED: METHOCARBAMOL 500 MG TAB PO PRN (13:30)
[2017-05-27] MEDS: FAMOTIDINE 20 MG TAB PO SCH (22:30)
--- NOTE | 2017-05-28 06:36 | PD.ORT.PN ---
Subjective Subjective Remarks POD 3 s/p ORIF left humeral shaft doing well. pain controlled. no complaints. out of bed. Objective Vitals Vital Signs Date Time Temp Pulse Resp B/P Pulse Ox O2 Delivery O2 Flow Rate FiO2 05/27/17 23:52 96.2 75 17 118/65 100 05/27/17 19:27 Nasal Cannula 2.00 05/27/17 19:00 96.0 89 17 110/59 98 05/27/17 15:52 96.4 88 19 95/51 100 05/27/17 15:33 97 Nasal Cannula 4.00 05/27/17 11:58 95.8 86 19 126/58 100 05/27/17 07:41 96.1 68 17 88/50 97 I/O 05/27/17 05/27/17 05/27/17 05/28/17 05/28/17 05/28/17 07:00 15:00 23:00 07:00 15:00 23:00 Intake Total 480 ml 720 ml 480 ml 240 ml Output Total 0 ml Balance 480 ml 720 ml 480 ml 240 ml Intake Oral 480 ml 720 ml 480 ml 240 ml Chest Tube Drainage Total 0 ml # Voids 1 1 3 3 # Bowel Movements 0 0 1 0 Result Diagram: 05/26/17 0746 05/26/17 0746 Imaging Last 72 hours Impressions Chest X-Ray 05/25/17 0600 Signed Impressions: Service Date/Time: Thursday, May 25, 2017 05:13 - CONCLUSION: Decreasing airspace consolidation. Right chest tube remains in place. No perceptible pneumothorax. Darrel Gunn MD Chest X-Ray 05/24/17 0000 Signed Impressions: Service Date/Time: Wednesday, May 24, 2017 05:13 - CONCLUSION: Persistent infiltrate right lung base. Chest tube overlies the right chest. Small right apical pneumothorax Raul Lemons MD Pelvis X-Ray 05/23/172056 Signed Impressions: Service Date/Time: Tuesday, May 23, 2017 20:50 - CONCLUSION: Negative trauma study. Elroy Rosales MD Head CT 05/23/172056 Signed Impressions: Service Date/Time: Tuesday, May 23, 2017 21:14 - CONCLUSION: 1. The study is degraded by motion and streak artifact. 2. No definite hemorrhage or mass effect identified. Elroy Rosales MD Chest X-Ray 05/23/172056 Signed Impressions: Service Date/Time: Tuesday, May 23, 2017 20:50 - CONCLUSION: 1. Subcutaneous emphysema and apparent right pneumothorax. 2. The heart appears mildly displaced to the left of midline which could indicate tension. Elroy Rosales MD Chest CT 05/23/172056 Signed Impressions: Service Date/Time: Tuesday, May 23, 2017 21:21 - CONCLUSION: 1. Moderate size right pneumothorax with mediastinal shift to the left consistent with tension pneumothorax. 2. Nondisplaced right rib fractures with subcutaneous edema 3. Small right effusion and mild right lung contusion. These findings were called to Dr. Perdomo in the emergency room at 2138 hrs. Elroy Roasles MD Cervical Spine CT 05/23/172056 Signed Impressions: Service Date/Time: Tuesday, May 23, 2017 21:14 - CONCLUSION: Negative trauma CT. Elroy Rosales MD Abdomen/Pelvis CT 05/23/172056 Signed Impressions: Service Date/Time: Tuesday, May 23, 2017 21:21 - CONCLUSION: 1. No definite visceral injury. There is mild motion and streak artifact. 2. Moderate size right basilar and lateral pneumothorax with mild small right effusion. 3. Several right lower lateral rib fractures. Elroy Rosales MD Humerus X-Ray 05/23/17 0000 Signed Impressions: Service Date/Time: Tuesday, May 23, 2017 20:50 - CONCLUSION: Transverse fracture through the midhumerus. Elroy Rosales MD Chest X-Ray 05/23/17 0000 Signed Impressions: Service Date/Time: Tuesday, May 23, 2017 22:11 - CONCLUSION: 1. Interval placement of small bore right-sided chest tube with no visualized pneumothorax. 2. Hazy opacity in the right lung. Elroy Rosales MD Last 72 hours Impressions Chest X-Ray 05/24/17 0000 Signed Impressions: Service Date/Time: Wednesday, May 24, 2017 05:13 - CONCLUSION: Persistent infiltrate right lung base. Chest tube overlies the right chest. Small right apical pneumothorax Raul Lemons MD Pelvis X-Ray 05/23/172056 Signed Impressions: Service Date/Time: Tuesday, May 23, 2017 20:50 - CONCLUSION: Negative trauma study. Elroy Rosales MD Head CT 05/23/172056 Signed Impressions: Service Date/Time: Tuesday, May 23, 2017 21:14 - CONCLUSION: 1. The study is degraded by motion and streak artifact. 2. No definite hemorrhage or mass effect identified. Elroy Rosales MD Chest X-Ray 05/23/172056 Signed Impressions: Service Date/Time: Tuesday, May 23, 2017 20:50 - CONCLUSION: 1. Subcutaneous emphysema and apparent right pneumothorax. 2. The heart appears mildly displaced to the left of midline which could indicate tension. Elroy Rosales MD Chest CT 05/23/172056 Signed Impressions: Service Date/Time: Tuesday, May 23, 2017 21:21 - CONCLUSION: 1. Moderate size right pneumothorax with mediastinal shift to the left consistent with tension pneumothorax. 2. Nondisplaced right rib fractures with subcutaneous edema 3. Small right effusion and mild right lung contusion. These findings were called to Dr. Perdomo in the emergency room at 2138 hrs. Elroy Rosales MD Cervical Spine CT 05/23/172056 Signed Impressions: Service Date/Time: Tuesday, May 23, 2017 21:14 - CONCLUSION: Negative trauma CT. Elroy Rosales MD Abdomen/Pelvis CT 05/23/172056 Signed Impressions: Service Date/Time: Tuesday, May 23, 2017 21:21 - CONCLUSION: 1. No definite visceral injury. There is mild motion and streak artifact. 2. Moderate size right basilar and lateral pneumothorax with mild small right effusion. 3. Several right lower lateral rib fractures. Elroy Rosales MD Humerus X-Ray 05/23/17 0000 Signed Impressions: Service Date/Time: Tuesday, May 23, 2017 20:50 - CONCLUSION: Transverse fracture through the midhumerus. Elroy Rosales MD Chest X-Ray 05/23/17 0000 Signed Impressions: Service Date/Time: Tuesday, May 23, 2017 22:11 - CONCLUSION: 1. Interval placement of small bore right-sided chest tube with no visualized pneumothorax. 2. Hazy opacity in the right lung. Elroy Rosales MD Last 24 hours Impressions Chest X-Ray 05/24/17 0000 Signed Impressions: Service Date/Time: Wednesday, May 24, 2017 05:13 - CONCLUSION: Persistent infiltrate right lung base. Chest tube overlies the right chest. Small right apical pneumothorax Raul Lemons MD Pelvis X-Ray 05/23/172056 Signed Impressions: Service Date/Time: Tuesday, May 23, 2017 20:50 - CONCLUSION: Negative trauma study. Elroy Rosales MD Head CT 05/23/172056 Signed Impressions: Service Date/Time: Tuesday, May 23, 2017 21:14 - CONCLUSION: 1. The study is degraded by motion and streak artifact. 2. No definite hemorrhage or mass effect identified. Elroy Rosales MD Chest X-Ray 05/23/172056 Signed Impressions: Service Date/Time: Tuesday, May 23, 2017 20:50 - CONCLUSION: 1. Subcutaneous emphysema and apparent right pneumothorax. 2. The heart appears mildly displaced to the left of midline which could indicate tension. Elroy Rosales MD Chest CT 05/23/172056 Signed Impressions: Service Date/Time: Tuesday, May 23, 2017 21:21 - CONCLUSION: 1. Moderate size right pneumothorax with mediastinal shift to the left consistent with tension pneumothorax. 2. Nondisplaced right rib fractures with subcutaneous edema 3. Small right effusion and mild right lung contusion. These findings were called to Dr. Perdomo in the emergency room at 2138 hrs. Elroy Rosales MD Cervical Spine CT 05/23/172056 Signed Impressions: Service Date/Time: Tuesday, May 23, 2017 21:14 - CONCLUSION: Negative trauma CT. Elroy Rosales MD Abdomen/Pelvis CT 05/23/172056 Signed Impressions: Service Date/Time: Tuesday, May 23, 2017 21:21 - CONCLUSION: 1. No definite visceral injury. There is mild motion and streak artifact. 2. Moderate size right basilar and lateral pneumothorax with mild small right effusion. 3. Several right lower lateral rib fractures. Elroy Rosales MD Objective Remarks LUE: dressing clean and dry. intact. +sling. Full median/ulnar nerve sensation and good radial nerve function Assessment & Plan Assessment and Plan 1) Left humeral shaft fracture ORIF POD 3 Nonweightbearing left upper extremity PT for passive and active assist range of motion of shoulder and elbow. Active range of motion of fingers Daily dressing changes beginning POD 2 Discharge planning for home with [facility] Ortho cleared for discharge Follow-up with Dr. Chase or [place] in 2 weeks Grzegorz Sena May 28, 2017 06:36
[2017-05-28 07:15] VITALS: BP 134/67; PULSE 77; RESP 18; TEMP 96; O2SAT 100
[2017-05-28 07:28] LABS: HEMATOCRIT 29.5 % (35.0-46.0); MEAN CORPUSCULAR HGB CONC 33.7 % (32.0-36.0); PLATELET COUNT 260 TH/MM3 (150-450); RED BLOOD COUNT 3.32 MIL/MM3 (4.00-5.30); RED CELL DISTRIBUTION WIDTH 13.4 % (11.6-17.2); REVIEW FLAG FINAL; WHITE BLOOD COUNT 7.4 TH/MM3 (4.0-11.0)
[2017-05-28] MEDS: DOCUSATE SODIUM 100 MG CAP PO SCH ×2 (07:31→19:30)
[2017-05-28 07:47] LABS: BICARBONATE 31.4 MEQ/L (21.0-32.0); POTASSIUM 4.3 MEQ/L (3.5-5.1)
[2017-05-28] MEDS: LIDOCAINE HCL 5% PATCH T-DERMAL SCH (07:53)
[2017-05-28] MEDS: RESP: ALBUTEROL 2.5 MG/IPRATROPIUM 0.5 MG NEB (SCH) NEB ×4 (08:12→20:49)
[2017-05-28 08:16] VITALS: O2SAT 96
--- NOTE | 2017-05-28 08:23 | RADRPT ---
EXAM DATE/TIME: 05/28/2017 07:54 [facility] COMPARISON: CHEST SINGLE AP, May 26, 2017, 6:30. CHEST SINGLE AP, May 27, 2017, 6:50. INDICATIONS : Patient is short of breath. Evaluate pneumothorax. MEDICAL HISTORY : None. SURGICAL HISTORY : None. ENCOUNTER: Subsequent ACUITY: 4 - 6 days PAIN SCORE: 2/10 LOCATION: Bilateral chest FINDINGS: Stable right-sided chest tube in place. There is a small right apical pneumothorax were which appear slightly smaller than 05/26/2017 exam. No stable mild bibasilar air space disease. Cardiomediastinal c ontours are stable. Remainder of the exam is unchanged. CONCLUSION: 1. Stable right-sided chest tube with small right apical pneumothorax more evident on the current exa m in comparison to yesterday's radiograph but smaller in comparison to 05/26/2017. 2. Mild bilateral lower lobe airspace disease, likely atelectasis. Kartik Bronson MD on May 28, 2017 at 8:18 Board Certified Radiologist. This report was verified electronically.
[2017-05-28] MEDS: LACTULOSE SYRUP 20 GM/30 ML CUP PO SCH (09:00)
[2017-05-28] MEDS: SODIUM CHLORIDE 0.9% FLUSH 5 ML FLUSH IVF SCH ×2 (09:00→21:00)
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
[2017-05-28 11:50] VITALS: BP 118/60; PULSE 109; RESP 18; TEMP 98.1; O2SAT 94
[2017-05-28] MEDS: ENOXAPARIN SODIUM 30 MG/0.3 ML SYRINGE SQ SCH ×2 (14:00→22:47)
[2017-05-28 15:56] VITALS: BP 103/63; PULSE 117; RESP 19; TEMP 99.6; O2SAT 97
[2017-05-28 19:00] VITALS: BP 117/64; PULSE 97; RESP 18; TEMP 97.9; O2SAT 96
[2017-05-28] MEDS: SODIUM CHLORIDE 0.9% FLUSH 10 ML FLUSH IV FLUSH PRN (19:30)
[2017-05-28] MEDS: FAMOTIDINE 20 MG TAB PO SCH (19:30)
[2017-05-28] MEDS: ACETAMINOPHEN/HYDROcodone 325 MG/10 MG TAB PO PRN (19:30)
[2017-05-28 20:51] VITALS: O2SAT 93
[2017-05-29] VITALS: BP 130/70; PULSE 85; RESP 17; TEMP 98.1; O2SAT 97
[2017-05-29] MEDS: ACETAMINOPHEN/HYDROcodone 325 MG/10 MG TAB PO PRN ×2 (03:43→09:42)
--- NOTE | 2017-05-29 06:10 | RADRPT ---
EXAM DATE/TIME: 05/29/2017 05:35 [facility] COMPARISON: CHEST SINGLE AP, May 28, 2017, 7:54. INDICATIONS : Follow up pneumothorax. Trauma. MEDICAL HISTORY : None. SURGICAL HISTORY : None. ENCOUNTER: Subsequent ACUITY: 4 - 6 days PAIN SCORE: 6/10 LOCATION: Bilateral chest FINDINGS: Small right basilar chest tube. I do not see a pneumothorax. Osseous structures are intact. Small rig ht effusion and basilar atelectasis. CONCLUSION: No definite pneumothorax identified. Ignacio Hernandez MD on May 29, 2017 at 6:07 Board Certified Radiologist. This report was verified electronically.
[2017-05-29 08:00] VITALS: BP 109/65; PULSE 88; RESP 18; TEMP 96.6; O2SAT 97
[2017-05-29] MEDS: RESP: ALBUTEROL 2.5 MG/IPRATROPIUM 0.5 MG NEB (SCH) NEB ×4 (08:02→20:42)
[2017-05-29 08:04] VITALS: O2SAT 94
[2017-05-29] MEDS: SODIUM CHLORIDE 0.9% FLUSH 5 ML FLUSH IVF SCH (09:00)
[2017-05-29] MEDS: LACTULOSE SYRUP 20 GM/30 ML CUP PO SCH (09:00)
[2017-05-29] MEDS: DOCUSATE SODIUM 100 MG CAP PO SCH (09:20)
[2017-05-29] MEDS: LIDOCAINE HCL 5% PATCH T-DERMAL SCH (09:20)
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
[2017-05-29] MEDS ORDERED: DOCU1CAP39 PO (10:26)
[2017-05-29] MEDS ORDERED: MAGN400S PO (10:26)
[2017-05-29] MEDS: ENOXAPARIN SODIUM 30 MG/0.3 ML SYRINGE SQ SCH (10:33)
[2017-05-29 12:00] VITALS: BP 120/71; PULSE 88; RESP 18; TEMP 95.2; O2SAT 97
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
--- NOTE | 2017-05-29 14:19 | RADRPT ---
EXAM DATE/TIME: 05/29/2017 13:29 [facility] COMPARISON: CHEST SINGLE AP, May 29, 2017, 5:35. INDICATIONS : Pneumothorax. MEDICAL HISTORY : None. SURGICAL HISTORY : None. ENCOUNTER: Subsequent ACUITY: 4 - 6 days PAIN SCORE: 3/10 LOCATION: Right chest FINDINGS: Chest tube is present on the right side. No definite pneumothorax is seen for technique. Slight bibas ilar atelectasis is seen. The rest of the examination has not significantly changed. CONCLUSION: No appreciable change. Brittany Camejo MD on May 29, 2017 at 14:14 Board Certified Radiologist. This report was verified electronically.
[2017-05-29] MEDS ORDERED: MAGNESIUM HYDROXIDE SUSP 30 ML CUP PO ONE (15:30)
[2017-05-29] MEDS: MAGNESIUM HYDROXIDE SUSP 30 ML CUP PO PRN (15:50)
[2017-05-29 16:00] VITALS: BP 118/66; PULSE 85; RESP 18; TEMP 97.4; O2SAT 96
--- NOTE | 2017-05-29 17:05 | RADRPT ---
EXAM DATE/TIME: 05/29/2017 16:25 [facility] COMPARISON: CHEST SINGLE AP, May 29, 2017, 13:29. INDICATIONS : Follow up for chest tube removal. MEDICAL HISTORY : None. SURGICAL HISTORY : None. ENCOUNTER: Initial ACUITY: 1 day PAIN SCORE: 0/10 LOCATION: Bilateral chest FINDINGS: There is slight worsening of right lung base atelectasis and/or infiltrate. Previously seen right virgen st tube has been removed. No definite pneumothorax is seen for technique. The rest of the examination has not significantly changed. CONCLUSION: Slightly increasing right lung base atelectasis and/or infiltrate and no pneumothorax. Brittany Camejo MD on May 29, 2017 at 17:03 Board Certified Radiologist. This report was verified electronically.
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
[2017-05-29 20:43] VITALS: O2SAT 98
== END 2017-05-29 21:46 | disposition home or self-care (01) | DRG 982 ==
LOC: NEPI 20:55 → NEDH 21:41 → EDBD 21:41 → N03B 21:51 → N06B 05-25 22:47
PROVIDERS: ADMIT Surgery; ATTEND Surgery
PROC: 0W9930Z Drainage of Right Pleural Cavity with Drainage Device, Percutaneous Approach (ICD-10-PCS; 2017-05-23)
PROC: 0PSG04Z Reposition Left Humeral Shaft with Internal Fixation Device, Open Approach (ICD-10-PCS; principal; 2017-05-25 10:13)
DX: S27.0XXA Traumatic pneumothorax, initial encounter (principal); S22.41XA Multiple fractures of ribs, right side, initial encounter for closed fracture; S27.321A Contusion of lung, unilateral, initial encounter; I95.9 Hypotension, unspecified; Z68.43 Body mass index [BMI] 50.0-59.9, adult; S42.302A Unspecified fracture of shaft of humerus, left arm, initial encounter for closed fracture; S30.811A Abrasion of abdominal wall, initial encounter; S40.811A Abrasion of right upper arm, initial encounter; S80.811A Abrasion, right lower leg, initial encounter; V43.62XA Car passenger injured in collision with other type car in traffic accident, initial encounter; Y92.410 Unspecified street and highway as the place of occurrence of the external cause; E66.01 Morbid (severe) obesity due to excess calories; E78.1 Pure hyperglyceridemia; Z72.0 Tobacco use; E87.6 Hypokalemia; R73.09 Other abnormal glucose; R42 Dizziness and giddiness
CPT/HCPCS: 70450; 71010; 71260; 72125; 72170; 73060; 74177; 76000; 80048; 80053; 80307; 82435; 82565; 82947; 84132; 84295; 84520; 84702; 85007; 85025; 85027; 85384; 85610; 85730; 86850; 86900; 86901; 86920; 87641; 94150; 94640; 94664; 94667; 94668; C1713; C1729; C9113; J0131; J0690; J1100; J1170; J1580; J1650; J2270; J2405; J2710; J3010; J3370; J7120; Q9967

== ENCOUNTER 2017-05-30 22:45 | Emergency (ER) | payer OTHER ==
[~2017-05-30] VITALS: Ht 167.6 cm; Wt 140.0 kg
[~2017-05-30 22:45] MED LIST: CALCTAB19 PO; DOCU1CAP39 PO; ERGO1CAP30 PO; HYDR-3583 PO; MAGN400S PO
[2017-05-30 22:48] VITALS: BP 122/63; PULSE 90; RESP 18; TEMP 98.8; O2SAT 96
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
[2017-05-31] MEDS ORDERED: HYDROmorphone HCL PF 4 MG/ML VIAL SQ ONE
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
== END 2017-05-31 01:39 | disposition home or self-care (01) ==
LOC: NEPD 22:45
DX: R07.89 Other chest pain (principal); S22.41XD Multiple fractures of ribs, right side, subsequent encounter for fracture with routine healing; S42.302D Unspecified fracture of shaft of humerus, left arm, subsequent encounter for fracture with routine healing; R91.8 Other nonspecific abnormal finding of lung field; F17.200 Nicotine dependence, unspecified, uncomplicated; Z79.899 Other long term (current) drug therapy; V49.9XXD Car occupant (driver) (passenger) injured in unspecified traffic accident, subsequent encounter
CPT/HCPCS: 71010; 96372; 99284; J1170

== ENCOUNTER 2017-07-13 22:35 | Emergency (ER) | payer OTHER ==
[~2017-07-13] VITALS: Ht 167.6 cm; Wt 136.0 kg
[2017-07-13 22:38] VITALS: BP 139/85; PULSE 87; RESP 16; TEMP 97.8; O2SAT 100
[2017-07-13 23:51] VITALS: BP 138/86; PULSE 77; RESP 16; O2SAT 100
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
--- NOTE | 2017-07-14 00:27 | RADRPT ---
EXAM DATE/TIME: 07/14/2017 00:20 [facility] COMPARISON: HUMERUS LEFT (MIN 2VWS), May 25, 2017, 11:37. HUMERUS LEFT (1 VW), May 23, 2017, 20:50. INDICATIONS : Left humerus pain. No known recent trauma. MEDICAL HISTORY : Previous left humerus fracture SURGICAL HISTORY : ORIF left humerus ENCOUNTER: Initial ACUITY: 1 day PAIN SCORE: 9/10 LOCATION: Left upper extremity FINDINGS: Single view of the left humerus demonstrates a displaced fracture in the mid diaphysis with 6 mm of l ateral displacement of the distal fragment. A lateral side plate with multiple interlocking screws ar e present in the side plate is fractured. No soft tissue abnormality is visualized. CONCLUSION: There is a displaced oblique fracture in the mid left humeral diaphysis with associated fracture of t he humeral sideplate. Darrel Han MD on July 14, 2017 at 0:24 Board Certified Radiologist. This report was verified electronically.
[2017-07-14] MEDS ORDERED: ONDANSETRON HCL 4 MG/2 ML VIAL IM ONE (00:45)
[2017-07-14] MEDS ORDERED: HYDROmorphone HCL PF 1 MG/ML VIAL IM ONE (00:45)
[2017-07-14] MEDS ORDERED: IBUPROFEN 600 MG TAB PO ONE (00:45)
[2017-07-14] MEDS ORDERED: IBUP-232 PO (01:27)
[2017-07-14 01:37] VITALS: BP 109/66; PULSE 67; RESP 14; O2SAT 96
== END 2017-07-14 02:40 | disposition home or self-care (01) ==
LOC: NEPE 22:35
DX: S42.332D Displaced oblique fracture of shaft of humerus, left arm, subsequent encounter for fracture with routine healing (principal); V49.9XXD Car occupant (driver) (passenger) injured in unspecified traffic accident, subsequent encounter
CPT/HCPCS: 73060; 96372; 99284; J1170; J2405

== ENCOUNTER 2017-07-16 06:14 | Observation (INO) | payer OTHER ==
[~2017-07-16] VITALS: Ht 170.2 cm; Wt 142.5 kg
[~2017-07-16 06:14] MED LIST changes: +IBUP-232 PO; -MAGN400S PO
[2017-07-16] MEDS ORDERED: LACTATED RINGER'S 1000 ML IV PRN (06:45)
[2017-07-16] MEDS ORDERED: METOPROLOL TARTRATE 25 MG TAB PO PRN (06:45)
[2017-07-16] MEDS ORDERED: CHLORHEXIDINE GLUCONATE 4% SOLN 120 ML BTL TOPICAL SCH (06:45)
[2017-07-16] MEDS ORDERED: CHLORHEXIDINE GLUCONATE 2 % 1 PACK (2 CLOTHS) TOPICAL PRN (06:45)
[2017-07-16] MEDS ORDERED: POVIDONE IODINE 5% (ANTISEPSIS KIT) 4 APPLICATIONS EACH NARE PRN (06:45)
[2017-07-16] MEDS ORDERED: SODIUM CHLORID 0.9% 500 ML IV PRN (06:45)
[2017-07-16] MEDS ORDERED: INSULIN HUMAN REGULAR 1,000 UNITS/10 ML VIAL SQ PRN (06:45)
[2017-07-16] MEDS ORDERED: MIDAZOLAM HCL 2 MG/2 ML VIAL ONE (07:46)
[2017-07-16] MEDS ORDERED: ACETAMINOPHEN 1000 MG/100 ML 100 ML IV ONE (07:46)
[2017-07-16] MEDS ORDERED: GENTAMICIN SULFATE 80 MG/2 ML VIAL ONE (07:49)
[2017-07-16] MEDS ORDERED: VANCOMYCIN 500 MG VIAL ONE (07:49)
[2017-07-16] MEDS ORDERED: HYDR-3583 PO (09:24)
--- NOTE | 2017-07-16 09:25 | HHI.FF ---
Face to Face Verification Diagnosis: (1) Closed left humeral fracture Occupational Therapy Left UE Weight Bearing: Non WB Left UE Range of Motion: Passive ROM Nursing Nursing: Dressing changes Dressing Changes: 4x4s, Paper tape (can switch to xeroform/coverderm (primapore ) once drainage minimal), Xeroform I have seen patient Camille Turcios on 07/16/17. My clinical findings support the need for the requested home health care services because: Ltd mobility - disease progression I certify that my clinical findings support that this patient is homebound because: Post-op weakness Grzegorz Sena Jul 16, 2017 09:25
[2017-07-16] MEDS ORDERED: ceFAZolin INJ 1,000 MG VIAL IV ONE (09:54)
[2017-07-16] MEDS ORDERED: ONDANSETRON HCL 4 MG/2 ML VIAL IVP PRN (10:00)
[2017-07-16] MEDS ORDERED: diphenhydrAMINE HCL 25 MG CAP PO PRN (10:00)
--- NOTE | 2017-07-16 10:01 | PD.OP ---
cc: Lazaro Chase MD Operative Report Date of Surgery: Jul 16, 2017 Preoperative Diagnosis: Delayed healing of left humerus shaft fracture with fracture of plate Postoperative Diagnosis: Procedure: Removal of deep hardware, open reduction internal fixation of left humerus shaft fracture nonunion with compression plating Anesthesia: Gen. Surgeon: Lazaro Chase [employer](s): SELVIN Valle PA-C The surgical procedure was assisted by my physician rehab care assistant. My P.A. presence was necessary throughout this case for the manipulation and positioning of the surgical extremity. My P.A. was assisting me throughout the duration of this procedure. The skill set of a physician rehab care assistant was medically necessary to complete this procedure. During the surgical case the surgical resident was working at the back table and the physician rehab care assistant was directly assisting me. Operation and Findings: Patient was seen and evaluated preoperatively. Patient was seen in clinic this week and found to have a broken plate and laid healing every humerus. Treatment options were discussed regarding humerus fracture. After detailed discussion of risk and benefits of procedure patient wishes to proceed with surgery. Risks of surgery include bleeding, infection, nonunion, malunion, painful hardware, loss of motion of shoulder and elbow, weakness and numbness of arm, as well as medical competitions including blood clots stroke and . Patient was brought to operating room and placed on the OR table. GETA was administered by anesthesiologist. Operative arm and shoulder were prepped with alcohol followed by Hibiclens and draped usual sterile fashion. Timeout procedure was performed. IV antibiotics were held until cultures were obtained. A standard anterior approach was utilized. Incision was made through previous scar. Subcutaneous tissues was dissected with Bovie. Cephalic vein was identified and protected. Proximally the deltopectoral interval was opened. Distally the brachialis was split. The fracture was identified. At this point attention was turned to removal of hardware. A screwdriver was used to loosen each of the screws. All the screws were now removed. Both ends of the plate were also removed. The fracture was visualized. There was minimal fracture callus formation around the fracture site. Attention was now turned towards debridement of the nonunion site. Fracture site was cleaned with curettes. Cultures were obtained from this tissue. Antibiotics were now given. A TPS bur was also used to debride both ends of the bone. At this point the fracture was reduced using fracture tenaculums. Multiplanar fluoroscopy confirmed excellent of fracture. A Synthes 4.5 plate was contoured to fit the humerus. Plate was provisionally held the bone with K wires. 4.5 cortical screws were placed on each side of the fracture. The screws were placed to add compression to fracture. Multiple screws were placed in each side of the fracture. All screws were predrilled and premeasured for appropriate length. Final fluoroscopy revealed excellent alignment of fracture with well-placed hardware. There was a small area of comminution along the medial cortex. This area of fracture was filled with 2.5 cc of Biosphere bone graft. Incision was thoroughly irrigated. Fascia was closed with #1 Vicryl, subcutaneous tissues closed with 3-0 Vicryl, and skin was closed with cristhian. Sterile dressings were applied. Needle and sponge counts were correct. Patient was placed into a sling, and then transferred to recovery room in stable condition Lazaro Chase MD Jul 16, 2017 10:01
[2017-07-16] MEDS ORDERED: DO NOT ADM ANY ANTICOAGULANT DRUGS PRN (10:14)
[2017-07-16] MEDS ORDERED: *morphine SULFATE 8 MG/ML PERIprocedure ONLY ONE ×2 (10:23→12:10)
[2017-07-16] MEDS ORDERED: SODIUM CHLORIDE 0.9% FLUSH 10 ML FLUSH IV FLUSH PRN (11:00)
[2017-07-16] MEDS ORDERED: ERGOCALCIFEROL (VIT D2) 50,000 UNIT CAP PO SCH (11:00)
[2017-07-16] MEDS ORDERED: NEOSTIGMINE 3 MG/3 ML SYR IV ONE (12:00)
[2017-07-16] MEDS ORDERED: ePHEDrine/NS 25 MG/5 ML SYR IV ONE (12:00)
[2017-07-16] MEDS ORDERED: ONDANSETRON HCL 4 MG/2 ML VIAL IV PUSH ONE (12:00)
[2017-07-16] MEDS ORDERED: PROPOFOL 200 MG/20 ML AMP IV ONE (12:00)
[2017-07-16 13:12] VITALS: BP 105/59; PULSE 83; RESP 17; TEMP 96.3; O2SAT 98
[2017-07-16 13:15] VITALS: O2SAT 98
--- NOTE | 2017-07-16 15:52 | RADRPT ---
EXAM DATE/TIME: 07/16/2017 09:27 [facility] COMPARISON: HUMERUS LEFT (MIN 2VWS), May 25, 2017, 11:37. INDICATIONS : Left humerus hardware removal and open reduction internal fixation. MEDICAL HISTORY : Previous left humerus fracture SURGICAL HISTORY : ORIF left humerus. ENCOUNTER: Initial ACUITY: 1 day PAIN SCORE: Non-responsive. LOCATION: Left humerus FINDINGS: 7 magnified C. arm spot views are centered over the humerus and labeled left. There is an orthopedic plate with multiple anchoring screws traversing a diaphyseal fracture. Good alignment seen. Some call us formation is noted. CONCLUSION: Limited images as detailed above. Desean Baxter Jr., MD on July 16, 2017 at 15:46 Board Certified Radiologist. This report was verified electronically.
[2017-07-16] MEDS: CALCIUM/VITAMIN D 250 MG/125 U TAB PO SCH (16:04)
[2017-07-16] MEDS: ceFAZolin 2 GM PREMIX 50 ML IV SCH (16:04)
[2017-07-16] MEDS: MORPHINE SULFATE 4 MG/ML INJ IV PUSH PRN ×2 (16:05→22:07)
[2017-07-16] MEDS: ACETAMINOPHEN/HYDROcodone 325 MG/10 MG TAB PO PRN (19:35)
[2017-07-16 20:05] VITALS: BP 95/53; PULSE 81; RESP 18; TEMP 97; O2SAT 96
[2017-07-16] MEDS ORDERED: VANCOMYCIN INJ 1,000 MG in SODIUM CHLOR 0.9% 250 ML INJ 250 ML IV ONE (21:00)
[2017-07-16] MEDS: SODIUM CHLORIDE 0.9% FLUSH 10 ML FLUSH IV FLUSH SCH (21:51)
[2017-07-16] MEDS: DOCUSATE SODIUM 50 MG/SENNA 8.6 MG TAB PO SCH (21:52)
[2017-07-17 00:06] VITALS: BP 95/52; PULSE 76; RESP 18; TEMP 97.3; O2SAT 99
[2017-07-17] MEDS: ceFAZolin 2 GM PREMIX 50 ML IV SCH ×2 (00:28→07:56)
[2017-07-17] MEDS: ACETAMINOPHEN/HYDROcodone 325 MG/10 MG TAB PO PRN ×4 (04:46→17:36)
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
[2017-07-17 07:24] VITALS: BP 102/62; PULSE 59; RESP 18; TEMP 95.6; O2SAT 100
--- NOTE | 2017-07-17 07:26 | HHI.DS ---
Discharge Summary Admission Date Jul 16, 2017 at 09:56 Discharge Date: Jul 17, 2017 Admitting Diagnosis Hardware failure of left midshaft humerus fracture Diagnosis: (1) Closed left humeral fracture Diagnosis: Principal ICD Codes: S42.302A - Unspecified fracture of shaft of humerus, left arm, initial encounter for closed fracture Status: Acute Procedures Removal of hardware and revision of left midshaft humerus fracture PE at Discharge LUE: dressings clean and dry. intact. +sling. NVI to median/ulnar/radial nerves. Hospital Course Patient admitted from outpatient basis due to failure of hardware of left humerus fracture. She was admitted for revision of said fracture. She tolerated procedure well. She was admitted 6 north. She was out of bed her own accord on postoperative day 0 and possibly 1. She was imaging well known to the bathroom. Her pain was controlled with medications. She is fit for discharge home. She'll be discharged home today with home health care. She'll remain nonweightbearing. Shot daily dressing changes. She'll perform pendulums once a day. She'll follow-up in the office Dr. Lugo or his PA in 2 weeks Pt Condition on Discharge: Good Discharge Disposition: Disch w/ Home Health Serv Discharge Instructions Diet Instructions: As Tolerated, No Restrictions Activities You Can Perform: Non Weight Bearing Follow up Referrals: Orthopedics - 2 Weeks @ [facility] [place] with Lazaro Lugo MD Continued Medications: Calcium Carbonate-Vitamin D (Calcium 600+D 200) 600-200 Mg-Unit Tab 1 TAB PO BID for Nutritional Supplement, #90 TAB 0 Refills Ergocalciferol (Ergocalciferol) 50,000 Unit Cap 23419 UNITS PO Q7D for Nutritional Supplement, #8 CAP Hydrocodone-Acetaminophen (Hydrocodone-Acetaminophen) 10-325 mg Tab 1 TAB PO Q4H PRN for PAIN, #60 TAB 0 Refills (This prescription has been renewed ) Discontinued Medications: Ibuprofen (Ibuprofen) 600 Mg Tab 600 MG PO Q8H PRN for PAIN, #12 TAB 0 Refills Grzegorz Sena Jul 17, 2017 07:26
[2017-07-17] MEDS: DOCUSATE SODIUM 50 MG/SENNA 8.6 MG TAB PO SCH (07:55)
[2017-07-17] MEDS: CALCIUM/VITAMIN D 250 MG/125 U TAB PO SCH ×2 (07:55→10:49)
[2017-07-17] MEDS: SODIUM CHLORIDE 0.9% FLUSH 10 ML FLUSH IV FLUSH SCH (07:56)
[2017-07-17] MEDS ORDERED: CHOLECALCIFEROL (VIT D3) 1000 UNIT TAB PO SCH (09:00)
[2017-07-17 11:42] VITALS: BP 91/54; PULSE 58; RESP 18; TEMP 95.7; O2SAT 98
[2017-07-17 15:30] VITALS: BP 93/57; PULSE 73; RESP 18; TEMP 97.4; O2SAT 94
[2017-07-17 17:41] VITALS: O2SAT 98
== END 2017-07-17 18:03 | disposition home or self-care (01) ==
LOC: HSDC 06:14 → HSDI 09:56 → N06B 13:00
PROVIDERS: ADMIT Orthopaedic Surgery Orthopaedic Trauma; ATTEND Orthopaedic Surgery Orthopaedic Trauma
DX: S42.302K Unspecified fracture of shaft of humerus, left arm, subsequent encounter for fracture with nonunion (principal); Y92.410 Unspecified street and highway as the place of occurrence of the external cause; V49.9XXD Car occupant (driver) (passenger) injured in unspecified traffic accident, subsequent encounter
CPT/HCPCS: 00450; 20680; 24430; 73060; 76000; 87015; 87070; 87102; 87116; 87176; 87205; 87206; 97110; 97166; C1713; G0378; G8987; G8988; J0131; J0690; J1580; J2250; J2270; J2405; J2710; J3010; J3370; J7050; J7120